=== PATIENT | female | born 1965 | race Two or more races ===

== ENCOUNTER 2020-08-29 09:34 | Outpatient (CLI) | payer OTHER | END 2020-08-29 09:45 | disposition home or self-care (01) | LOC: SONOGRAMA 09:34 | PROVIDERS: ATTEND Pathology Anatomic Pathology & Clinical Pathology | DX: E04.1 Nontoxic single thyroid nodule (principal); D34 Benign neoplasm of thyroid gland; E04.8 Other specified nontoxic goiter ==

== ENCOUNTER 2022-03-09 08:08 | Outpatient (CLI) | payer OTHER | END 2022-03-09 08:13 | disposition home or self-care (01) | LOC: SONOGRAMA 08:08 | PROVIDERS: ATTEND Pathology Anatomic Pathology & Clinical Pathology | DX: E04.1 Nontoxic single thyroid nodule (principal) ==